=== PATIENT | female | born 1950 | race Caucasian/White ===

== ENCOUNTER → 2017-01-24 | Outpatient (CLI) | payer OTHER ==
[~2017-01-24] MED LIST: AMOXICILLIN500 M1 PO; AMPHETAMINE SAL10 MG PO; ATARAX PO; CEFUROXIME500 MG PO; CHLORTHALIDONE25 MG PO; CLARITIN10 MG PO; DESYREL50 MG; FISH OIL 1,0001 EAC5 PO; HORMONE REPLACEMENT; HYDROXYZINE HCL10 M1 PO; HYDROXYZINE HCL25 M1 PO; MACROBID 100 M100 M1 PO; MIRALAX17 GM PO; MOBIC15 MG PO; MOBIC7.5 MG PO; NORCO 5-325 TA1 EACH PO; NORFLEX100 MG PO; PERCOCET 5-3251 EACH PO; PHENERGAN 25 MG25 M1 PO; PREDNISONE 20 M20 MG PO; PROAIR HFA8.5 GM INH; PROMS25 WY RECTAL; PROVENTIL HFA6.7 G1 INH; SLEEPING PILL; TESSALON PERLE100 MG PO; TRAZODONE 150150 M1; TRAZODONE HCL100 MG PO; TUSSIONEX PENN473 ML PO; VENTOLIN HFA 1818 GM INH; WELLBUTRIN SR150 MG; WELLBUTRIN SR150 MG PO; WELLBUTRIN XL300 MG PO; XANAX 0.25 MG0.25 MG; XANAX 0.25 MG0.25 MG PO; XANAX 0.5 MG0.5 M1 PO; ZOFRAN ODT4 MG PO; ZOLOFT25 MG PO; ZOLOFT50 MG PO; ZYRTEC10 M2; [UNRECOGNIZED DRUG - REMARK]
== END ==
LOC: NUC 10:08
DX: M85.88 Other specified disorders of bone density and structure, other site (principal); Z78.0 Asymptomatic menopausal state

== ENCOUNTER 2018-01-17 12:18 | Emergency (ER) | payer OTHER ==
[~2018-01-17] VITALS: Ht 157.5 cm; Wt 53.5 kg
[2018-01-17 12:22] VITALS: BP 153/73
[2018-01-17] MEDS ORDERED: IBUPROFEN 600600 M1 PO (13:10)
== END 2018-01-17 15:56 | disposition home or self-care (01) ==
LOC: ER 12:18
DX: S92.531A Displaced fracture of distal phalanx of right lesser toe(s), initial encounter for closed fracture (principal); W01.0XXA Fall on same level from slipping, tripping and stumbling without subsequent striking against object, initial encounter; Y93.89 Activity, other specified; Y92.89 Other specified places as the place of occurrence of the external cause; Y99.8 Other external cause status; F41.9 Anxiety disorder, unspecified; I10 Essential (primary) hypertension; Z96.653 Presence of artificial knee joint, bilateral; Z90.49 Acquired absence of other specified parts of digestive tract; Z90.721 Acquired absence of ovaries, unilateral; Z87.891 Personal history of nicotine dependence; Z88.1 Allergy status to other antibiotic agents; Z91.041 Radiographic dye allergy status; Z88.8 Allergy status to other drugs, medicaments and biological substances; Z88.6 Allergy status to analgesic agent

== ENCOUNTER 2018-04-20 02:36 | Emergency (ER) | payer OTHER ==
[~2018-04-20] VITALS: Ht 157.5 cm; Wt 54.4 kg
--- NOTE | ~2018-04-20 | EKG ---
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
[~2018-04-20 02:36] MED LIST changes: +IBUPROFEN 600600 M1 PO
[2018-04-20 03:14] LABS: ABSOLUTE NEUTROPHILS 5.2 thou/uL (1.4-8.2); BASOPHILS 0.9 % (0.0-2.0); EOSINOPHILS 4.2 % (0.0-3.0); HEMATOCRIT 44.5 % (37.0-47.0); HEMOGLOBIN 15.5 gm/dL (12.0-15.0); LYMPHOCYTES 17.3 % (24.0-44.0); MCH 32.7 pg (26.0-34.0); MCHC 34.8 g/dL (28.0-37.0); PLATELET COUNT 309 thou/uL (150-400); POLYS 70.6 % (36.0-66.0); RBC 4.74 mil/uL (4.20-5.00); RDW 12.5 % (10.5-14.5); WBC 7.4 thou/uL (4.0-11.0)
[2018-04-20 03:23] LABS: ANION GAP 12 mmol/L (7-16); BUN 15 mg/dL (7-18); CALCIUM 9.4 mg/dL (8.5-10.1); CHLORIDE 103 mmol/L (98-107); CO2 24 mmol/L (21-32); CREATININE 0.9 mg/dL (0.6-1.0); GLUCOSE 130 mg/dL (74-106); POTASSIUM 3.9 mmol/L (3.5-5.1); SODIUM 139 mmol/L (136-145)
[2018-04-20 03:31] LABS: ALBUMIN 3.9 g/dL (3.4-5.0); DIRECT BILIRUBIN < 0.1 mg/dL (<0.1-0.3); LIPASE 145 U/L (73-393); SGOT 24 U/L (15-37); SGPT 22 U/L (30-65); TOTAL BILIRUBIN 0.5 mg/dL (<0.1-1.0); TOTAL PROTEIN 7.2 g/dL (6.4-8.2); TROPONIN-I <0.06 ng/mL (<0.06)
[2018-04-20 04:17] LABS: URINE BILIRUBIN NEGATIVE (Negative); URINE BLOOD TRACE (Negative); URINE CLARITY CLEAR; URINE COLOR YELLOW; URINE GLUCOSE-RANDOM* NEGATIVE (Negative); URINE KETONES NEGATIVE (Negative); URINE LEUKOCYTES-REFLEX 1+ (Negative); URINE NITRITE-REFLEX NEGATIVE (Negative); URINE PROTEIN (DIPSTICK) NEGATIVE (Negative); URINE SPECIFIC GRAVITY <= 1.005 (1.005-1.035); URINE UROBILINOGEN 0.2 E.U./dl (0.2-1.0)
[2018-04-20 04:25] LABS: AMP/METHAMP Negative (Negative); BARBITURATES Negative (Negative); BENZODIAZEPINES Negative (Negative); COCAINE Negative (Negative); METHADONE Negative (Negative); OPIATES Negative (Negative); PCP Negative (Negative)
[2018-04-20 04:28] LABS: BACTERIA-REFLEX 1-9 Few /HPF (None Seen); CASTS None Seen /LPF (None Seen); CRYSTALS None Seen /LPF (None Seen); MUCUS None Seen strn/LPF (None Seen); SQUAMOUS None Seen /LPF (0-3); URINE RBC 0-2 Rare /HPF (0-2); URINE WBC-REFLEX 0-5 Rare /HPF (0-5)
[2018-04-20 04:29] LABS: TRANSITIONAL EPITHEL CELL 0-3 Few /LPF (None Seen)
[2018-04-20 06:03] VITALS: BP 171/73
[2018-04-20] MEDS ORDERED: COMPAZINE10 MG PO (06:14)
== END 2018-04-20 06:32 | disposition home or self-care (01) ==
LOC: ER 02:36
PROVIDERS: Emergency Medicine
DX: R11.2 Nausea with vomiting, unspecified (principal); T44.1X5A Adverse effect of other parasympathomimetics [cholinergics], initial encounter; Y92.89 Other specified places as the place of occurrence of the external cause; I10 Essential (primary) hypertension; F41.9 Anxiety disorder, unspecified; Z96.653 Presence of artificial knee joint, bilateral; Z90.89 Acquired absence of other organs; Z90.49 Acquired absence of other specified parts of digestive tract; Z90.721 Acquired absence of ovaries, unilateral; Z88.1 Allergy status to other antibiotic agents; Z88.8 Allergy status to other drugs, medicaments and biological substances; Z88.6 Allergy status to analgesic agent; Z91.041 Radiographic dye allergy status; Z87.891 Personal history of nicotine dependence

== ENCOUNTER 2018-09-16 19:35 | Emergency (ER) | payer OTHER ==
[~2018-09-16] VITALS: Ht 157.5 cm; Wt 55.8 kg
[~2018-09-16 19:35] MED LIST changes: +COMPAZINE10 MG PO
[2018-09-16] MEDS ORDERED: EXELON1 EAC1 TRANSDERM (20:08)
[2018-09-16] MEDS ORDERED: NAMENDA 10 MG T10 MG PO (20:09)
[2018-09-16] MEDS ORDERED: AMLODIPINE BESY10 MG PO (20:10)
[2018-09-16] MEDS ORDERED: TOPROL XL25 MG PO (20:11)
[2018-09-16] MEDS ORDERED: LISINOPRIL40 MG PO (20:12)
[2018-09-16] MEDS ORDERED: ALL DAY ALLERGY10 M2 PO (20:12)
[2018-09-16] MEDS ORDERED: FLONASE 0.05%50 MCG NASAL (20:13)
[2018-09-16] MEDS ORDERED: BREO ELLIPTA 11 EACH INH (20:13)
[2018-09-16] MEDS ORDERED: AZELASTINE HCL6 ML (20:15)
[2018-09-16 20:18] LABS: BE(vivo) -3.1 mmol/L (-2 to +3); HCO3 15.8 mmol/L (22.0-26.0); PO2 142.3 mmHg (80.0-100.0); pH 7.585 (7.360-7.450); sO2 99.2 % (92.0-98.0)
[2018-09-16 20:24] LABS: HEMATOCRIT 41.9 % (37.0-47.0); HEMOGLOBIN 14.7 gm/dL (12.0-15.0); MCH 32.6 pg (26.0-34.0); MCHC 35.1 g/dL (28.0-37.0); MCV 92.8 fL (80.0-100.0); RBC 4.52 mil/uL (4.20-5.00); RDW 12.5 % (10.5-14.5); WBC 6.7 thou/uL (4.0-11.0)
[2018-09-16 20:27] LABS: ANION GAP 16 mmol/L (7-16); BUN 11 mg/dL (7-18); CALCIUM 9.4 mg/dL (8.5-10.1); CHLORIDE 103 mmol/L (98-107); CO2 19 mmol/L (21-32); CREATININE 0.8 mg/dL (0.6-1.0); GLUCOSE 108 mg/dL (74-106); SODIUM 138 mmol/L (136-145)
[2018-09-16 20:29] LABS: POTASSIUM 3.8 mmol/L (3.5-5.1)
[2018-09-16 20:39] LABS: ALBUMIN 3.8 g/dL (3.4-5.0); SGOT 33 U/L (15-37); SGPT 18 U/L (30-65); TOTAL BILIRUBIN 0.7 mg/dL (<0.1-1.0); TOTAL PROTEIN 7.1 g/dL (6.4-8.2); TROPONIN-I <0.06 ng/mL (<0.06)
[2018-09-16] MEDS ORDERED: VENTOLIN HFA 1818 GM INH (21:20)
[2018-09-16] MEDS ORDERED: PREDNISONE 20 M20 M1 PO (21:20)
[2018-09-16 21:34] VITALS: BP 150/79
--- NOTE | 2018-09-17 00:10 | EKG ---
[address] [address] ELECTROCARDIOGRAM REPORT Name: MEGHAN SANZ I Room #: DEP [facility]#: [id number] ������������������ Admission: 09/16/18 ������������������ Attend Phys: Discharge: 09/16/18 ������������������ Date of : 48 Report #: [id number] ����������������������������������������������������������������� [id number] THIS REPORT FOR: //name// [facility] ED Test Date: 2018-09-16 Test Time: 20:46:42 Pat Name: MEGHAN SANZ Department: Room: Gender: F Barista: keaton : 1950 Requested By: Janina Salmon Order Number: [id number] MD: Rd Haley Measurements Intervals [place] Rate: 93 P: 56 DE: 200 QRS: -30 QRSD: 90 T: 45 QT: 361 QTc: 449 Interpretive Statements Sinus rhythm Inferior infarct, old Baseline wander in lead(s) II,III,aVF Compared to ECG 04/20/2018 03:16:18 no significant changes Electronically Signed On 09-17-2018 0:10:[address]aley [email or web address] ��������������������������������������������� <ELECTRONICALLY SIGNED> ���������������������������������������� By: Rd Haley MD ��������������������������������������������� 09/17/[address] MD /EPI
== END 2018-09-16 21:35 | disposition home or self-care (01) ==
LOC: ER 19:35
PROVIDERS: Physician Assistant
DX: J45.901 Unspecified asthma with (acute) exacerbation (principal); R06.4 Hyperventilation; I10 Essential (primary) hypertension; Z96.653 Presence of artificial knee joint, bilateral; Z79.899 Other long term (current) drug therapy; Z87.891 Personal history of nicotine dependence; Z88.1 Allergy status to other antibiotic agents; Z88.8 Allergy status to other drugs, medicaments and biological substances

== ENCOUNTER 2018-11-16 09:45 | Inpatient (IN) | payer OTHER ==
[~2018-11-16] VITALS: Ht 157.5 cm; Wt 54.4 kg
[2018-11-16 09:45] VITALS: BP 167/96
[~2018-11-16 09:45] MED LIST changes: +ALL DAY ALLERGY10 M2 PO; +AMLODIPINE BESY10 MG PO; +AZELASTINE HCL6 ML; +BREO ELLIPTA 11 EACH INH; +EXELON1 EAC1 TRANSDERM; +FLONASE 0.05%50 MCG NASAL; +LISINOPRIL40 MG PO; +NAMENDA 10 MG T10 MG PO; +PREDNISONE 20 M20 M1 PO; +TOPROL XL25 MG PO
[2018-11-16 10:46] LABS: HEMOGLOBIN 15.4 gm/dL (12.0-15.0); MCH 32.4 pg (26.0-34.0); MCHC 35.1 g/dL (28.0-37.0); MCV 92.5 fL (80.0-100.0); RBC 4.76 mil/uL (4.20-5.00); RDW 12.8 % (10.5-14.5); WBC 5.9 thou/uL (4.0-11.0)
[2018-11-16] MEDS ORDERED: VITAMIN B-12500 MCG PO (11:13)
[2018-11-16] MEDS ORDERED: VITAMIN B-1100 M1 PO (11:16)
[2018-11-16] MEDS ORDERED: PREVAGEN PO (11:17)
[2018-11-16 11:19] LABS: ANION GAP 9 mmol/L (7-16); BUN 11 mg/dL (7-18); CALCIUM 8.9 mg/dL (8.5-10.1); CHLORIDE 105 mmol/L (98-107); CO2 25 mmol/L (21-32); CREATININE 0.8 mg/dL (0.6-1.0); GLUCOSE 111 mg/dL (74-106); POTASSIUM 3.6 mmol/L (3.5-5.1); SODIUM 139 mmol/L (136-145)
[2018-11-16 11:31] LABS: ALBUMIN 3.6 g/dL (3.4-5.0); LIPASE 97 U/L (73-393); SGOT 20 U/L (15-37); SGPT 16 U/L (30-65); TOTAL BILIRUBIN 1.1 mg/dL (<0.1-1.0); TOTAL PROTEIN 6.2 g/dL (6.4-8.2); TROPONIN-I <0.06 ng/mL (<0.06)
[2018-11-16 11:55] LABS: URINE BILIRUBIN NEGATIVE (Negative); URINE BLOOD NEGATIVE (Negative); URINE CLARITY CLEAR; URINE COLOR YELLOW; URINE GLUCOSE-RANDOM* NEGATIVE (Negative); URINE KETONES NEGATIVE (Negative); URINE LEUKOCYTES-REFLEX NEGATIVE (Negative); URINE NITRITE-REFLEX NEGATIVE (Negative); URINE PROTEIN (DIPSTICK) NEGATIVE (Negative); URINE UROBILINOGEN 0.2 E.U./dl (0.2-1.0)
--- NOTE | 2018-11-16 15:01 | EKG ---
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: : 1950 Requested By: Lurdes De La Rosa Order Number: [id number] MD: Mark Gamboa Measurements Intervals [place] Rate: 70 P: 46 HI: 201 QRS: -26 QRSD: 78 T: 45 QT: 404 QTc: 436 Interpretive Statements Sinus rhythm Borderline left axis deviation Compared to ECG 09/16/2018 20:46:42 Myocardial infarct finding no longer present Electronically Signed On 11-16-2018 15:00:53 CDT by Mark Gamboa [email or web address] ��������������������������������������������� <ELECTRONICALLY SIGNED> ���������������������������������������� By: Mark Gamboa MD ��������������������������������������������� 11/16/18 1500 1002 1002 Mark Gamboa MD /NORAH
[2018-11-16 15:13] VITALS: BP 165/84
[2018-11-16 16:17] VITALS: BP 173/98
[2018-11-16 17:15] VITALS: BP 173/106
--- NOTE | 2018-11-16 18:24 | NUR ---
ADM PT CAME IN FROM ER. PT ORIENTED TO ROOM. SEEN AND EXAMINED BY PROVIDER. WILL CONTINUE TO MONITOR.
[2018-11-16 19:10] VITALS: BP 140/88
[2018-11-17 04:45] VITALS: BP 151/84
--- NOTE | 2018-11-17 06:23 | NUR ---
PATIENT IS ALERT AND ORIENTED WITH INTERMITTENT FORGETFULLNESS. PAITNET IS UP AD BARB. PATINET IS NSR ON TELE. PATIENTS BLOOD PRESSURE HAS BEEN UNDER CONTORL. PAITENT IS CONTIENT. PATIENT IS STEADY ON FEET. AMBULATES OFTEN. PATIENT DENEIS PAIN. PATIENT IS RESTING COMFORTABLY IN BED. WCM.
--- NOTE | 2018-11-17 07:41 | H ---
[facility] [place] [address] HISTORY AND PHYSICAL Name: MEGHAN SANZ I Room #: 356-P ADM IN M.R.#: [id number] Admission: 11/16/18 ������������������ Attend Phys: Fabrizio Brown MD Discharge: ������������������ Date of : 48 Report #: [id number] THIS REPORT FOR: //name// CC: Fabrizio Brown DATE OF SERVICE: 11/16/2018 CHIEF COMPLAINT: Nausea, vomiting. HISTORY OF PRESENT ILLNESS: The patient is a 68-year-old female who came to the Emergency Room with a one-day history of nausea and vomiting. She states that last night, she got sick after eating some meat and vomited. She then stated she vomited around midnight or 4:00 a.m., but she could not remember the details. She thinks she had some "bad food." She remembers regurgitating some of the food particles. Since then, she has not had any recurrent symptoms. No fever or chills. No abdominal pain. She says she just feels thirsty. The other overriding issue here is her high blood pressure. In the Emergency Room, she had ranges of 180/90-100 systolic. It is unclear whether she has been compliant with her home medications. Has had some recent issues in the last six months of cognitive decline and short term memory lapse. She carries a diagnosis of mild cognitive impairment from [facility] going back to at least 2016. They had been seeing her once or twice a year, but I do not know when the last assessment was; however, her neighbor is with her today who says that they have noted significant short-term memory loss and decline in the last several months. The neighbor reports that recently, the patient called neighbors and was afraid that she had "given away all your shoes" when there was nothing truth to that story at all. They have noted she is disoriented at times and forgetful. She repeated herself several times in the interview this evening. PAST MEDICAL HISTORY: Hypertension, mild cognitive impairment, asthma. PAST SURGICAL HISTORY: Unknown. FAMILY HISTORY: Noncontributory. SOCIAL HISTORY: She lives alone. She has one son. No chronic tobacco use. She does have red wine occasionally. ALLERGIES: KEFLEX, CIPRO, CLARITHROMYCIN, DOXYCYCLINE, ELETRIPTAN, LEVAQUIN, METRONIDAZOLE, NITROFURANTOIN, ZOFRAN. MEDICATIONS: Bupropion, trazodone, sertraline, memantine, Norvasc, metoprolol, lisinopril, B12, thiamine. REVIEW OF SYSTEMS: She complains of headache. No chest pain, shortness of [address] [address] HISTORY AND PHYSICAL Name: MEGHAN SANZ Kana Room #: 356-P [facility] IN M.R.#: [id number] Admission: 11/16/18 ������������������ Attend Phys: Fabrizio Brown MD Discharge: ������������������ Date of : 48 Report #: [id number] breath, abdominal pain, nausea, vomiting, diarrhea, constipation, dysuria, syncope. PHYSICAL EXAMINATION: VITAL SIGNS: Temperature 36.6, pulse 118, respirations 25, blood pressure 165/84, O2 sat 97% on room air. GENERAL: She is awake, alert, in no distress. HEAD AND NECK: Unremarkable. LUNGS: Clear. HEART: Regular. ABDOMEN: Soft, normoactive bowel sounds. EXTREMITIES: No edema. NEUROLOGIC: Motor strength 4/5 throughout. PSYCHIATRIC: She remembered my name. She remembered being at the hospital. She had difficulty giving the timeframe of the details overnight. She repeated herself several times through the interview. She could not remember the names of her medications. Urinalysis, chemistry, CBC all unremarkable and chest x-ray was clear. ASSESSMENT: 1. Nausea and vomiting. 2. Hypertensive urgency. 3. 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 PLAN: I need her admitted to the hospital to ensure that this GI issue is self-limited. So far, it seems stable and may very well be related to just a basic gastroenteritis or food borne illness that is passing. Blood pressure control is an issue and again, it is unclear how compliant she has been with her medication, but I will resume her home regimen and adjust as needed. Imaging of the brain will be obtained. The other ongoing issue was that it appears now clinically and historically speaking with her sister in the office in the spring and now a neighbor that her cognition has declined at least in the last 6 months and maybe for the last year or longer. I feel this has progressed beyond mild cognitive impairment to an early dementia, most likely of Alzheimer's type. I will ask Psychiatry to see her to assess for competency and off for an additional opinion on her cognition. ��������������������������������������������� <ELECTRONICALLY SIGNED> ���������������������������������������� By: Fabrizio Brown MD ��������������������������������������������� 11/17/18 0741 1703 1737 Fabrizio Brown MD /nt
[2018-11-17] MEDS ORDERED: METOPROLOL SUCC50 MG PO (07:56)
[2018-11-17] MEDS ORDERED: ALL DAY ALLERGY10 M2 PO (07:57)
[2018-11-17] MEDS ORDERED: EXELON1 EAC1 TRANSDERM (07:58)
[2018-11-17] MEDS ORDERED: VENTOLIN HFA 1818 GM INH (07:59)
[2018-11-17] MEDS ORDERED: IBUPROFEN 600600 M1 PO (07:59)
[2018-11-17 08:00] VITALS: BP 151/99
[2018-11-17] MEDS ORDERED: FLONASE 0.05%50 MCG NASAL (08:00)
[2018-11-17] MEDS ORDERED: BREO ELLIPTA 11 EACH INH (08:00)
[2018-11-17 10:54] VITALS: BP 151/99
--- NOTE | 2018-11-17 11:19 | NUR ---
care of pt assumed this am @ ~0700. pt noted to be awake in bed this am anxiously awaiting her breakfast, stating "i'm starving, when does it come?". pt aox4, but noted to be forgetful and repetitive in the information she shared w/ the rn. pt is aware of her dementia as she told the rn she has dementia. pt was very anxious to get home today to care for her cat as she states there is no one at home to feed her cat. pt states she lives very closely to the hospital and would walk home (when discharged) if she was 20 years younger. pt can not remember whether she drove herself to the hospital, but has called a friend to give her a ride home today. iv access, tele dc'd late morning. discharge paperwork, script x1 w/ education gone through w/ pt. pt informed of dr. herrera order for her not to drive until she has seen him in his office next week. [facility].
--- NOTE | 2018-11-19 12:15 | D ---
[facility] [address] [place] [address] DISCHARGE SUMMARY Name: MEGHAN SANZ Kana Room #: 356-P [facility] IN M.R.#: [id number] Admission: 11/16/18 ������������������ Attend Phys: Fabrizio Brown MD Discharge: 11/17/18 ������������������ Date of : 48 Report #: [id number] THIS REPORT FOR: //name// CC: Fabrizio Brown FINAL DIAGNOSES: 1. Uncontrolled hypertension. 2. Cognitive impairment. 3. Nausea and vomiting. HISTORY OF PRESENT ILLNESS: The patient was admitted through the Emergency Room with nausea and vomiting. Her blood pressure was elevated and it was unclear whether she was compliant with medications at home. She does have a diagnosis of mild cognitive impairment from [facility] dating back to as far as 2016 or beyond. However, neighbors and family have noted increased forgetfulness and confusion episodes in the last 6 months. I increased her metoprolol and her blood pressure was improved. She had no acute neurologic findings. She was oriented to place and remembered my name. We discussed the progression of her cognitive deficit. She did not want to participate in any further workup or treatment in the hospital and she was stable overnight. At this point, she is in clear enough mind to make basic decisions. I informed her of working with her family and preparing a care plan going forward as far as her living arrangements, supervision of ADLs and transportation and no driving at this point until she is reevaluated at . DISPOSITION: She will be discharged to home to the care of her family with diet and activity as tolerated. She will resume all her medications with the exception of increasing metoprolol to 100 mg a day. She will follow up with me early next week and we will work on getting her back to [facility] for cognitive reassessment. ��������������������������������������������� <ELECTRONICALLY SIGNED> ���������������������������������������� By: Fabrizio Brown MD ��������������������������������������������� 11/19/18 1215 0824 0900 Fabrizio Brown MD /nt
== END 2018-11-17 11:39 | disposition home or self-care (01) | DRG 305 ==
LOC: ER 09:45 → EROBS 13:33 → 3W 16:33
PROVIDERS: Physician Assistant; Student in an Organized Health Care Education/Training Program; ADMIT Internal Medicine Geriatric Medicine
DX: I16.0 Hypertensive urgency (principal); F03.90 Unspecified dementia, unspecified severity, without behavioral disturbance, psychotic disturbance, mood disturbance, and anxiety; F41.9 Anxiety disorder, unspecified; Z96.653 Presence of artificial knee joint, bilateral; I10 Essential (primary) hypertension; J45.909 Unspecified asthma, uncomplicated; Z60.2 Problems related to living alone; Z79.84 Long term (current) use of oral hypoglycemic drugs; Z90.49 Acquired absence of other specified parts of digestive tract; Z90.721 Acquired absence of ovaries, unilateral; Z79.1 Long term (current) use of non-steroidal anti-inflammatories (NSAID); Z79.899 Other long term (current) drug therapy; Z88.1 Allergy status to other antibiotic agents; Z88.6 Allergy status to analgesic agent; Z88.8 Allergy status to other drugs, medicaments and biological substances; Z91.041 Radiographic dye allergy status
CPT/HCPCS: 10879

== ENCOUNTER 2019-05-09 08:06 | Emergency (ER) | payer OTHER ==
[~2019-05-09] VITALS: Ht 157.5 cm; Wt 52.2 kg
[~2019-05-09 08:06] MED LIST changes: +METOPROLOL SUCC50 MG PO; +PREVAGEN PO; +VITAMIN B-1100 M1 PO; +VITAMIN B-12500 MCG PO
[2019-05-09 08:07] VITALS: BP 164/96
[2019-05-09 08:51] LABS: ABSOLUTE NEUTROPHILS 9.5 thou/uL (1.4-8.2); BASOPHILS 0.9 % (0.0-2.0); EOSINOPHILS 1.2 % (0.0-3.0); HEMATOCRIT 47.7 % (37.0-47.0); HEMOGLOBIN 16.2 gm/dL (12.0-15.0); LYMPHOCYTES 8.4 % (24.0-44.0); MCH 31.8 pg (26.0-34.0); MCV 93.7 fL (80.0-100.0); MONOCYTES 6.4 % (1.0-8.0); PLATELET COUNT 382 thou/uL (150-400); POLYS 83.1 % (36.0-66.0); RBC 5.09 mil/uL (4.20-5.00); RDW 13.5 % (10.5-14.5); WBC 11.4 thou/uL (4.0-11.0)
[2019-05-09 08:55] LABS: ANION GAP 8 mmol/L (7-16); BUN 18 mg/dL (7-18); CALCIUM 9.5 mg/dL (8.5-10.1); CHLORIDE 102 mmol/L (98-107); CO2 26 mmol/L (21-32); CREATININE 1.1 mg/dL (0.6-1.0); GLUCOSE 106 mg/dL (74-106); POTASSIUM 4.4 mmol/L (3.5-5.1); SODIUM 136 mmol/L (136-145)
[2019-05-09 09:05] LABS: ALBUMIN 4.5 g/dL (3.4-5.0); LIPASE 166 U/L (73-393); SGOT 21 U/L (15-37); SGPT 22 U/L (30-65); TOTAL BILIRUBIN 0.7 mg/dL (<0.1-1.0); TROPONIN-I <0.06 ng/mL (<0.06)
[2019-05-09 09:34] LABS: URINE BILIRUBIN NEGATIVE (Negative); URINE BLOOD TRACE (Negative); URINE CLARITY CLEAR; URINE COLOR YELLOW; URINE GLUCOSE-RANDOM* NEGATIVE (Negative); URINE KETONES NEGATIVE (Negative); URINE LEUKOCYTES-REFLEX NEGATIVE (Negative); URINE NITRITE-REFLEX NEGATIVE (Negative); URINE PROTEIN (DIPSTICK) NEGATIVE (Negative); URINE UROBILINOGEN 0.2 E.U./dl (0.2-1.0)
--- NOTE | 2019-05-09 17:37 | EKG ---
[address] [address] [facility] [place] [address] ELECTROCARDIOGRAM REPORT Name: MEGHAN SANZ [id number] Admission: 05/09/19 Attend Phys: Discharge: 05/09/19 Date of : 48 Report #: [id number] THIS REPORT FOR: //name// [facility] ED Test Date: 2019-05-09 Test Time: 08:57:48 Pat Name: MEGHAN SANZ Department: Room: Gender: F Spacer Type Bar And Segment: ARPIT : 1950 Requested By: Rick Mao Order Number: [id number] MD: Rey Romero Measurements Intervals [place] Rate: 98 P: 68 CT: 169 QRS: -47 QRSD: 81 T: 48 QT: 342 QTc: 437 Interpretive Statements Sinus rhythm Poor R wave progression Inferior infarct, old No previous ECGs available for comparison Electronically Signed On 05-09-2019 17:37:24 EQUAL OPPORTUNITY DIRECTOR by Rey Romero [email or web address] <ELECTRONICALLY SIGNED> By: Rey Romero MD, [facility] 05/09/19 1737 0857 0857 Rey Romero MD, FACC /EPI
== END 2019-05-09 09:50 | disposition home or self-care (01) ==
LOC: ER 08:06
PROVIDERS: Emergency Medicine
DX: R10.13 Epigastric pain (principal); R11.2 Nausea with vomiting, unspecified; I10 Essential (primary) hypertension; J45.909 Unspecified asthma, uncomplicated; Z87.891 Personal history of nicotine dependence; Z88.1 Allergy status to other antibiotic agents; Z88.3 Allergy status to other anti-infective agents; Z79.899 Other long term (current) drug therapy; Z91.041 Radiographic dye allergy status; Z90.49 Acquired absence of other specified parts of digestive tract

== ENCOUNTER 2019-05-09 10:16 | Emergency (ER) | payer OTHER ==
[~2019-05-09] VITALS: Ht 157.5 cm; Wt 53.1 kg
[2019-05-09 10:52] LABS: AMP/METHAMP Negative (Negative); BARBITURATES Negative (Negative); BENZODIAZEPINES Negative (Negative); COCAINE Negative (Negative); METHADONE Negative (Negative); OPIATES Negative (Negative); PCP Negative (Negative)
[2019-05-09 12:46] VITALS: BP 161/91
--- NOTE | 2019-05-09 17:38 | EKG ---
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: ARPIT : 1950 Requested By: Rick Mao Order Number: [id number] MD: Rey Romero Measurements Intervals [place] Rate: 90 P: 48 RI: 151 QRS: -53 QRSD: 84 T: 63 QT: 358 QTc: 438 Interpretive Statements Sinus rhythm RSR' in V1 or V2, right VCD Probable inferior infarct, old Compared to ECG 11/16/2018 10:02:10 no significant change was found Electronically Signed On 05-09-2019 17:38:17 HEAD BOYS TENNIS COACH by Rey Romero [email or web address] <ELECTRONICALLY SIGNED> By: Rey Romero MD, [facility] 05/09/19 1738 1018 1018 Rey Romero MD, [facility] /EPI
== END 2019-05-09 12:47 | disposition home or self-care (01) ==
LOC: ER 10:16
PROVIDERS: Emergency Medicine
DX: R55 Syncope and collapse (principal); I10 Essential (primary) hypertension; J45.909 Unspecified asthma, uncomplicated; Z87.891 Personal history of nicotine dependence; Z88.1 Allergy status to other antibiotic agents; Z88.3 Allergy status to other anti-infective agents; Z91.041 Radiographic dye allergy status; Z88.8 Allergy status to other drugs, medicaments and biological substances; Z79.899 Other long term (current) drug therapy; W18.30XA Fall on same level, unspecified, initial encounter; Y93.89 Activity, other specified; Y92.481 Parking lot as the place of occurrence of the external cause; Y99.9 Unspecified external cause status

== ENCOUNTER 2019-12-10 23:26 | Inpatient (IN) | payer OTHER ==
[~2019-12-10] VITALS: Ht 157.5 cm; Wt 52.7 kg
[2019-12-10 23:27] VITALS: BP 148/79
--- NOTE | 2019-12-10 23:51 | NUR ---
1:1 with pt, she states that she is tired of life, and that she told her sister she wanted to kill her self. pt states that she is "too chicken to kill herself". pt is very emotional and is crying.
--- NOTE | 2019-12-11 00:35 | NUR ---
PT DPFERNANDO KAN, I TALKED WITH HER TO GIVE HER UPDATE ON THE PT. ISHMAEL STATED SHE DOES NOT KNOW HER MED LIST, OR HER CODED ALLERGIES.
[2019-12-11 00:44] LABS: URINE BILIRUBIN NEGATIVE (Negative); URINE BLOOD NEGATIVE (Negative); URINE CLARITY CLEAR; URINE COLOR YELLOW; URINE GLUCOSE-RANDOM* NEGATIVE (Negative); URINE KETONES NEGATIVE (Negative); URINE LEUKOCYTES-REFLEX NEGATIVE (Negative); URINE NITRITE-REFLEX NEGATIVE (Negative); URINE PROTEIN (DIPSTICK) NEGATIVE (Negative); URINE SPECIFIC GRAVITY <= 1.005 (1.005-1.035); URINE UROBILINOGEN 0.2 E.U./dl (0.2-1.0)
[2019-12-11 00:50] LABS: ABSOLUTE NEUTROPHILS 2.5 thou/uL (1.4-8.2); EOSINOPHILS 5.6 % (0.0-3.0); HEMATOCRIT 43.4 % (37.0-47.0); HEMOGLOBIN 15.1 gm/dL (12.0-15.0); LYMPHOCYTES 36.9 % (24.0-44.0); MCHC 34.8 g/dL (28.0-37.0); MCV 91.8 fL (80.0-100.0); MONOCYTES 10.9 % (1.0-8.0); PLATELET COUNT 268 thou/uL (150-400); POLYS 45.6 % (36.0-66.0); RBC 4.73 mil/uL (4.20-5.00); RDW 13.1 % (10.5-14.5); WBC 5.6 thou/uL (4.0-11.0)
[2019-12-11 00:54] LABS: ANION GAP 16 mmol/L (7-16); BUN 12 mg/dL (7-18); CALCIUM 8.3 mg/dL (8.5-10.1); CHLORIDE 98 mmol/L (98-107); CO2 18 mmol/L (21-32); CREATININE 0.7 mg/dL (0.6-1.0); GLUCOSE 102 mg/dL (74-106); POTASSIUM 3.4 mmol/L (3.5-5.1); SODIUM 132 mmol/L (136-145)
[2019-12-11 00:59] LABS: AMP/METHAMP Negative (Negative); BARBITURATES Negative (Negative); BENZODIAZEPINES Negative (Negative); COCAINE Negative (Negative); METHADONE Negative (Negative); OPIATES Negative (Negative); PCP Negative (Negative)
[2019-12-11 01:04] LABS: ALBUMIN 3.6 g/dL (3.4-5.0); SALICYLATE < 2.8 mg/dL (2.8-20.0); SGOT 18 U/L (15-37); SGPT 15 U/L (30-65); TOTAL BILIRUBIN 0.5 mg/dL (0.2-1.0); TOTAL PROTEIN 6.9 g/dL (6.4-8.2)
--- NOTE | 2019-12-11 06:22 | NUR ---
UPDATED DPOA PIETRO KAN ON PT ACCEPTANCE INTO [facility]IOR [facility]ALTH FACILITY HERE AT [facility].
[2019-12-11 08:01] VITALS: BP 158/82
[2019-12-11 11:25] VITALS: BP 184/91
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
--- NOTE | 2019-12-11 14:30 | EKG ---
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: : 1950 Requested By: Jassi Webb Order Number: [id number] MD: Santy Lang Measurements Intervals [place] Rate: 69 P: 66 DE: 216 QRS: -48 QRSD: 96 T: 52 QT: 429 QTc: 460 Interpretive Statements Sinus rhythm Borderline prolonged DE interval Probable left atrial enlargement RSR' in V1 or V2, probably normal variant Inferior infarct, old Minimal ST elevation, anterolateral leads Baseline wander in lead(s) V3 Compared to ECG 05/09/2019 10:18:45 ST (T wave) deviation now present Myocardial infarct finding still present Electronically Signed On 12-11-2019 14:29:59 CDT by Santy Lang [email or web address] <ELECTRONICALLY SIGNED> By: Santy Lang MD 12/11/19 1429 0002 0002 Santy Lang MD /EPI
[2019-12-11 17:13] VITALS: BP 158/91
[2019-12-11 22:00] VITALS: BP 158/91
--- NOTE | 2019-12-12 00:46 | NUR ---
Assumed care of patient this pm shift. Patient sitting on the couch in the mileu with peers at start of the shift. Patient is calm and cooperative and states that she just got depressed with all of the social isolation and that she does not want to harm herself or others. Patient is alert and oriented x4. Patient is not a falls risk. Patient ambulates with a steady even gait. Patient takes medications whole with fluids. Patient hopes to discharge soon. Patients assessment shows no signs of acute distress. We will continue to monitor per hospital protocol.
[2019-12-12 07:53] VITALS: BP 165/84
--- NOTE | 2019-12-12 09:25 | NUR ---
ONDINA received notice from the community engagement leader that Laura (DPOA) at [phone] requested her to send records to pt's neurologist and PCP. ONDINA contacted Laura. No answer. [place] [facility] SW team will continue to follow pt during her stay on this unit.
[2019-12-12 11:50] VITALS: BP 161/88
--- NOTE | 2019-12-12 13:54 | NUR ---
Alert to person and place only. States she wants to go home and was told she would be discharged today. Up ambulating in unit without s/o distress with regular, steady gait. Denies SI/HI. States she has not had a BM in one week but later stated she had large, explosive BM this AM. Also reports abdominal pain in epigastric area "I know it's there" which she states is from constipation. Breath sounds clear t/o. Reg HR auscultated. Color pink with brisk capillary refill and palpable peripheral pulses. No edema noted. Independent with voiding. Active bowel sounds over soft, flat abdomen.
--- NOTE | 2019-12-12 14:14 | NUR ---
ONDINA contacted Luanne with [facility] and gave her an update on pt. She asked that d/c docs be faxed to [phone] when pt discharges. ONDINA team will continue to follow pt during her stay on this unit.
[2019-12-12 19:25] VITALS: BP 145/85
[2019-12-12 22:00] VITALS: BP 145/85
--- NOTE | 2019-12-12 23:18 | H ---
[facility] [place] [address] HISTORY AND PHYSICAL Name: MEGHAN SANZ I Room #: 524B-B ADM IN M.R.#: [id number] Admission: 12/11/19 Attend Phys: Tho Lawton DO Discharge: Date of : 48 Report #: [id number] THIS REPORT FOR: cc: NO FAMILY PHYSICIAN or PCP NO FAMILY PHYSICIAN or PCP Tho Lawton DO ~ CC: Tho Lawton NO PCP DATE OF SERVICE: 12/11/2019 INPATIENT PSYCHIATRIC EVALUATION ATTENDING PSYCHIATRIST: Tho Lawton DO. MANAGER OF REGULATORY AFFAIRS: Antonette Castellanos MD REASON FOR ADMISSION: Presented to the Emergency Room via EMS and police due to concern of a suicide attempt. CHIEF COMPLAINT: "I'm here because I have been depressed." HISTORY OF PRESENT ILLNESS: This is a 69-year-old female, , brought to the ER last night by first responders after sister made 911 call. She reports the patient was stating she wanted to kill herself. On arrival to the ER, the patient denied these thoughts, but was intoxicated, reported she wanted to go home. She did admit to using alcohol and taking sleeping pills, but was unsure of how much. BAL was 191 in the ER, which is twice the legal limit in the state of [place]. Today, the patient was seen on the Geriatric Psychiatry Unit, is tearful. She was seen sitting on her bed with nurse practitioner, student present who assisted me in the interview. The patient reported she has symptoms of depression and have worsened over the last week. She denies that she has had any depressive symptoms prior to 1 week ago. She reports last night that her depression reached a peak, but denies saying she wanted to end her life and denies drinking more than 1 glass of wine, which I find hard to believe. The patient does note that she has a diagnosis of dementia. She states this was given in 2017 and has difficulty remembering events. The patient reports that her depression over the last week has stemmed from loneliness, brought on by the pandemic. The patient reports that she is normally very social person and has been able to see her friends lately. She does have a sister in the area, lives in the [place]. She reports her depression consists of hopelessness, apathy, increased sleep and lack of motivation. She reports that she does have a therapist, but has not had any appointment for several months. She denies that she has had any depression in the past. She denies any previous suicidal ideation or attempts on her life. The patient denies history of previous psychiatric hospitalizations. [facility] [address] [place] [address] HISTORY AND PHYSICAL Name: MEGHAN SANZ Kana Room #: 524B-B ADM IN M.R.#: [id number] Admission: 12/11/19 Attend Phys: Tho Lawton DO Discharge: Date of : 48 Report #: [id number] PSYCHIATRIC REVIEW OF SYSTEMS: Denies hallucination, paranoid delusions, panic symptoms, symptoms of anxiety, obsessions, compulsions, zaid, phobias or past violent behavior. Collateral from the patient's DPOA, who is her older sister. The DPOA reports that the patient called her last night and reported that the patient was trying to forget how terrible everything is and that she wants to kill herself. The sister reported that this is the first time she has heard the patient make suicidal statements, sister noted that the patient's alcohol intake has significantly increased since 08/2019. She also reports that the patient's hygiene has been declined over the last few months as well. Sister reports that the patient has increased paranoia over the last 6 months and is frequently concerned that someone is out to get her and to take her money. She notes that since the patient was diagnosed with major neurocognitive disorder 3 years ago, she has had a "slow decline in memory." HOME MEDICATIONS: Thiamine hydrochloride 130 mg p.o. daily, I think that one may have been started in the ER, rivastigmine 9.5 mg p.o. daily, I actually thought she was on the patch, so that likely is 9.5 rivastigmine patch, metoprolol 50 mg p.o. daily, lisinopril 40 mg p.o. daily, Flonase propionate 50 mcg nasal spray 1 squirt each nostril daily, cyanocobalamin 2000 mcg p.o. daily, amlodipine 10 mg p.o. daily, sertraline 50 mg p.o. daily, memantine 10 mg p.o. b.i.d., bupropion hydrochloride 100 mg p.o. at bedtime, ondansetron p.r.n. Actually the rest are just hospital PRNs not actual home meds. PSYCHIATRIC HISTORY: Diagnosis of major neurocognitive disorder 3 years ago, steady decline in memory, neurologist is Dr. Munoz, next appointment is 01/2020. MEDICAL HISTORY: Hypertension. PAST SURGICAL HISTORY: Knee replacement x 2 year unknown, shoulder surgery in 08/2019. ALLERGIES: CONTRAST DYE, CEPHALEXIN, DOXYCYCLINE, NITROFURANTOIN, CIPROFLOXACIN, METRONIDAZOLE, CLARITHROMYCIN, ONDANSETRON AND ACTUALLY THAT IS ORDERED, LEVOFLOXACIN AND ELETRIPTAN. Discontinuing ondansetron from her medication list since apparently was ordered as a medication. DEVELOPMENTAL HISTORY: Born in [place], [place], moved to [place] as a child when her parents were . The patient has one older sister who is her DPOA. The patient reports obtaining a bachelor's degree from [employer]. 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 Hobbies; she enjoys taking care of her house and yard, spend time with friends and volunteering. MARITAL HISTORY: for 20 years. 9 years ago. She has a 27-year-old son and she reports taking care of him, helped her cope with the of her . Sister reports that the son does not play an active role in the patient's life and she is concerned that he may be stealing money from her. This is unsubstantiated allegation I should add. At this time, the older sister manages the patient's money, bills and trust fund. CURRENT LIVING SITUATION: The patient lives at home alone with her cat and dog. SUBSTANCE USE HISTORY: Drinks 1 glass of wine daily. Quit smoking 20 years ago, but smoked 1 pack per day for 20 years for 20 pack years. Denies history of illicit drug use or prescription abuse. FAMILY HISTORY OF MENTAL ILLNESS: Grandfather was bipolar and committed suicide a number of years ago. Sister is bipolar. LABORATORY DATA: From [place] includes CBC: White count 5.6, H and H 15.1 and 43.4, platelet count 268, monocyte percentage high at 10.9, eosinophil percentage high at 5.6. Chemistries: Sodium 132, potassium 3.4, chloride 98, bicarbonate 18, anion gap 16, BUN 12, creatinine 0.7, estimated GFR 83, glucose 102, calcium 8.3, total bilirubin 0.5, AST 18, ALT 15, alkaline phosphatase 68, total protein 6.9, albumin 3.6. TSH 2.821. Free T4 0.9. Urinalysis is negative. Toxicology, alcohol was 191, repeated today was less than 10. UDS was otherwise negative. PHYSICAL EXAMINATION: VITAL SIGNS: Today, temperature 36.4, pulse 59, respirations 24, BP 158/91, O2 sat 99%. GENERAL: Normal gait and station, dressed in hospital gown. MENTAL STATUS EXAMINATION: This is a well-developed, thin female weighing 53.07 kilos, BMI 21.4. Alert and oriented x 3, sitting on her bed. Attention is intact. Concentration fair. Thought process is linear and goal directed. Thought content focused on present questions. Denied suicidal or homicidal ideation, auditory, visual, or tactile hallucinations. Mood and affect euthymic, congruent. Insight and judgment impaired. Thought content, she was focused on being discharged, asking why she had to stay an extra 3 days. Fund of knowledge is average. Speech is normal in rate and rhythm. SLUMS exam performed, scored a total of 16/30. Deficits noted on working memory, delayed memory and acute memory. FORMULATION: A 69-year-old female admitted to [facility] [address] [place] [address] HISTORY AND PHYSICAL Name: MEGHAN SANZ I Room #: 524B-B ADM IN M.R.#: [id number] Admission: 12/11/19 Attend Phys: Tho Lawton DO Discharge: Date of : 48 Report #: [id number] ER for suicidal ideation, concern for dementia, is a voluntary patient. DIAGNOSES: At this time, alcohol intoxication, substance use disorder for alcohol, at least mild, Major neurocognitive disorder due to Alzheimer's disease, unspecified depression. PLAN: Evaluate, stabilize, obtain collateral. We will go ahead and put the patient on the CIPR protocol as a precaution. We will order an OT evaluation, GISSELLE examination. At this time, we will continue her basic home medications so we get a better hand on her case. ESTIMATED LENGTH OF STAY: 10-14 days. STRENGTHS: She is insured, family support. WEAKNESSES: Advancing age, medical comorbidities. Time spent on interview, review of records, coordination of care is 60 minutes, greater than 50% of this time spent on review of records, coordination of care. <ELECTRONICALLY SIGNED> By: Tho Lawton DO 12/12/19 2318 08 51 Tho Lawton, /nt
--- NOTE | 2019-12-13 00:49 | NUR ---
Assumed care of patient this pm shift. Patient in good spirits. Patient is calm and cooperative. Patient denies pain. Patient denies hi/si. Patient is alert and oriented x4. Patients affect is euthmyic. Patient takes medications whole with thin fluids and is medication adherent. Patient ambulates without assistance and is not considered a falls risk. Patient stated that she had a bout of diarrhea this evening. Patients stool softners will be held. Patients assessment shows no signs of acute distress. Patient states that she would like to be at home where she could enjoy a glass of wine. We will continue to monitor per hospital protocol.
[2019-12-13 06:38] VITALS: BP 136/78
[2019-12-13 08:00] VITALS: BP 136/78
--- NOTE | 2019-12-13 08:45 | NUR ---
ONDINA spoke with Laura and provided her an update. ONDINA team will continue to follow pt during her stay.
[2019-12-13 09:59] VITALS: BP 136/78
--- NOTE | 2019-12-13 12:35 | NUR ---
PATIENT HAS BEEN UP, AND OUT ON THE UNIT, ALERT AND ORIENTED X 3-4, WITH PERIOD OF FORGETFULNESS, CONFUSION, AND DELUSION. PATIENT THINKS SHE IS ON VACATION, AND GOING ON A RETREAT. DOES NOT UNDERSTAND WHY SHE IS HERE IN "RESIDENTIAL". PATIENT REDIRECTED THAT SHE IS IN A HOSPITAL, AND NOT RESIDENTIAL. PATIENT DENIES SUICIDAL/HOMICIDAL IDEATION, SHE RATED BOTH DEPRESSION/ANXIETY 10/10. "IT IS DEPRESSING IN HERE, WHEN WILL I GET OUT" PATIENT TOOK ALL HER MEDICATION WHOLE WITHOUT DIFFICULTY. SHE IS EATING MEALS, AND DRINKING FLUID WELL. PATIENT DENIES HAVING PHYSICAL PAIN, NO C/O LOOSE STOOL VOICED AT THIS TIME. PATIENT AMBULATES WITH SLOW STEADY GAIT. NO SIGN OF ACUTE DISTRESS NOTED AT THIS TIME, WILL MONITOR FOR SAFETY.
--- NOTE | 2019-12-13 13:39 | NUR ---
Assess due to high nutrition screening risk. Pt admit to [facility] for depression, SI. Hx dementia. Attempt to visit this afternoon however pt sleeping with lights dimmed so did not awaken. Chart reviewed, eating 50-100% of meals. Wt 117 lb and wt from 05/2019 shows stable. On vitamin, thiamine, B12 supplementation for etoh use at home. No new nutrition interventions at this time but can follow up as needed to identify any food preferences pt may have. Low nutrition risk
[2019-12-13 19:36] VITALS: BP 157/81
--- NOTE | 2019-12-13 22:35 | NUR ---
Care assumed of patient at 1915: Patient in room at start of shift. Patient laying quietly in bed. Calm, pleasant and cooperative. Alert and oriented x4. Denies anxiety and depression. Denies SI/HI/AH/VH. Reports that she is sad that she is not at her home with her dog and cat. States that she spoke with the doctor today and she will be going home "soon". Reported that she had become depressed while at home due to social isolation and made suicidal statements. Good insight to current hospitalization. Patient declined HS snack. Took HS medication whole without difficulty. Reports having loose stools "since last night" and scheduled stool softener held. Patient fixated on wanting to return home. Patient presents with calm affect, occasional smile observed. Patient did isolate self to her room this evening. Patient was able to fall asleep at a reasonable hour and is resting quietly at this time.
[2019-12-14 07:35] VITALS: BP 123/79
--- NOTE | 2019-12-14 07:55 | NUR ---
PATIENT HAD STOMACH UPSET THIS MORNING, EMESIS X 1. MYLANTA 15ML GIVEN, WELL TOLERATED. NURSE PRACTITIONER (BISHOP) NOTIFIED. NO NEW ORDER AT THIS TIME.
[2019-12-14 10:14] VITALS: BP 123/79
--- NOTE | 2019-12-14 11:51 | NUR ---
ODNINA received a message from [facility] [phone] office; [phone] fax asking to speak to ONDINA. ONDINA returned her call and left a voice message.
--- NOTE | 2019-12-14 17:00 | NUR ---
ONDINA spoke to Jewels with [facility] who requested clinicals be faxed to them for admission consideration. SW faxed referral this date.
--- NOTE | 2019-12-14 17:36 | NUR ---
SW faxed referral to [facility].
--- NOTE | 2019-12-14 22:00 | NUR ---
Care assumed of patient at 1915: Patient laying awake in her bed at start of shift. Patient calm, pleasant and cooperative. Alert and oriented x3, disoriented on time. Patient appears to be more confused and forgetful this evening. Day shift reported that patient had an episode of emesis and several bowel movements throughout the day. Patient denies having had any of these episodes this shift. Patient reports that her stomach is "upset" and "sore". Offered jello for HS snack prior to taking HS medication. Patient declined HS snack. Patient did take HS medication without difficulty. Patient observed to be vomitting approximately 10 minutes later. Emesis appears to be only water. Pills not observed in the toilet. Patient stated the "new medicine" is upsetting her stomach. Patient denies anxiety and depression. Denies SI/HI/AH/VH. Reports that she is "just ready to get home". Patient declined Maalox and Zofran to assist with her stomach discomfort. After having episode of emesis, patient was able to lay in bed and fall asleep without difficulty. Patient resting quietly at this time.
[2019-12-15 06:12] LABS: BASOPHILS 0.6 % (0.0-2.0); EOSINOPHILS 1.7 % (0.0-3.0); HEMATOCRIT 45.3 % (37.0-47.0); HEMOGLOBIN 16.1 gm/dL (12.0-15.0); LYMPHOCYTES 17.4 % (24.0-44.0); MCH 32.2 pg (26.0-34.0); MCHC 35.5 g/dL (28.0-37.0); MCV 90.7 fL (80.0-100.0); MONOCYTES 11.8 % (1.0-8.0); PLATELET COUNT 318 thou/uL (150-400); POLYS 68.5 % (36.0-66.0); RBC 4.99 mil/uL (4.20-5.00); RDW 12.6 % (10.5-14.5); WBC 5.8 thou/uL (4.0-11.0)
[2019-12-15 06:19] LABS: ALBUMIN 3.9 g/dL (3.4-5.0); CALCIUM 8.6 mg/dL (8.5-10.1); CREATININE 0.9 mg/dL (0.6-1.0); PHOSPHORUS 3.4 mg/dL (2.5-4.9); POTASSIUM 3.9 mmol/L (3.5-5.1); TOTAL BILIRUBIN 1.5 mg/dL (0.2-1.0); TOTAL PROTEIN 6.8 g/dL (6.4-8.2)
[2019-12-15 09:05] VITALS: BP 136/84
[2019-12-15 11:38] VITALS: BP 136/84
--- NOTE | 2019-12-15 14:09 | NUR ---
1410 RESUMMED CARE FROM OVERNIGHT SHIFT THIS AM, PATIENT IN DAY ROOM TALKING WITH OTHER PATIENTS. PATIENT ATE BREAKFAST TOOK MEDICATION WITHOUT INCIDENCE. PATIENTS ABDOMEN SOFT ROUND BOWEL SOUNDS PRESENT LUNGS CLEAR PATIENT DENIES SI/HI/AH/VH AT PRESENT. PATIENT IS COOPERATIVE WANTS TO KNOW WHEN SHE IS LEAVING. PATIENT INTERACTS WELL WITH STAFF AND ROSALIO PATIENTS WILL CONTINUE TO MONITOR PATIENT FOR SAFETY AND BEHAVIORS.
[2019-12-15 23:03] VITALS: BP 170/102
--- NOTE | 2019-12-16 00:08 | NUR ---
Assumed care @ 19:15, In the day room seated on a couch in front of the television. Cooperative with assessment and compliant with medication administration. A&O x 2 to person and president. Confused as to why she is in [facility] in the hospital, reporting that she is here because her stomach hurts, mistakenly reports that today is Monday, even after discussing multiple times that today is Monday. Focusing on, I want to call my family law attorney, I want to call my hogshead stock clerk. Reminded that those offices are not open on a Monday or at night, she then says, of course I know that, and then asks again in a few minutes. Asleep @ 22:30, then awakens @ 23:10 c/o of sleeplessness. VS taken, B/P 186/100, order obtained from Rachel Harley N.P. for Clonidine 0.1 x 1 and this was given @ 23:11. Patient provided education regarding deep breathing to relax and focus the mind to overcome worry. Returned to bed ten minutes after taking the clonidine at staff suggestion. Will continue to monitor for patient's safety and behaviors.
[2019-12-16 03:24] VITALS: BP 132/63
--- NOTE | 2019-12-16 06:47 | NUR ---
slept 6.6 hours overnight
[2019-12-16 07:50] VITALS: BP 109/73
[2019-12-16 12:51] LABS: CALCIUM 9.3 mg/dL (8.5-10.1); CREATININE 0.8 mg/dL (0.6-1.0); POTASSIUM 4.2 mmol/L (3.5-5.1)
[2019-12-16] MEDS ORDERED: EXELON1 EAC1 TRANSDERM (13:45)
[2019-12-16] MEDS ORDERED: METOPROLOL SUCC50 MG PO (13:45)
[2019-12-16] MEDS ORDERED: PROTONIX40 M1 PO (13:46)
[2019-12-16 18:41] VITALS: BP 109/69
--- NOTE | 2019-12-16 19:08 | NUR ---
PT WAS IN DAY ROOM WITH PEERS . PT WAS TO HAVE URINE TEST , NA RESULTS WERE 118 DR Camila HARRISON.PT WAS PUT ON SEZIURE PRECATIONS , AND TO BE BE TRANSFERED TO [facility]Y RM 202 . PT PLESANT AND COOPERATIVE BUT VERY FORGETFULL. ASSESSMENT WAS DONE LUNGS CLEAR, HEART REGULAR, PEDADL PULSE EQUAL, BOWEL SOUNDS ACTIVE. C/O STOMACH PAIN AND NAUSEA. MEDICATION FOR NAUSEA GIVEN , LITTLE RESULTS. PT TRANSFERED TO CCU@ABOUT 11:45 VIA WHEEL CHAIR.
--- NOTE | 2019-12-17 10:00 | NUR ---
ONDINA spoke to pt's DPOA Laura on 12/16/19 re: discharge planning. Laura had been previously asked by ONDINA Meza to identify possible placement facilities for pt. She had provided the name of 2 facilities. ONDINA inquired about other facilities to contact. Laura provided [facility], [facility], [place], [place] and [facility]. She later called back and stated [facility] has openings and would like clinicals faxed to them. ONDINA faxed clinicals on Monday and will follow up. Laura called later and asked for the discharge summary to be faxed to Dr. Aidan Dugan [phone] offc; [phone] fax Laura expressed her desire for pt to return home with 24hr care which they are willing to pay for this. ONDINA explained doctor's recommendation. Laura reluctantly agreed to this plan.
--- NOTE | 2019-12-17 10:18 | NUR ---
ONDINA spoke to Lorena with [facility] [phone] and provided an update on pt. Lorena requested additional clinicals since original clinicals were sent on Monday. ONDINA faxed updates.
--- NOTE | 2019-12-17 10:35 | NUR ---
SW received multiple messages from pt's sister (DPFERNANDO) Laura inquiring about getting doctor's orders and medical records faxed to [facility]. SW returned her call and informed her that SW has been in touch with Lorena at [facility] and provided the necesary clinical information at this time.
--- NOTE | 2019-12-17 16:45 | NUR ---
SW received a call from Mary Ann with [facility] [phone] stating they are happy to accept patient once she is medically stable.
== END 2019-12-16 14:49 | DRG 57 ==
LOC: ER 23:26 → EROBS 12-11 03:10 → SBH 12-11 03:10 → EROBS 12-11 03:10 → SBH 12-11 09:05
PROVIDERS: Emergency Medicine; Internal Medicine; ADMIT Psychiatry & Neurology Psychiatry; ATTEND Psychiatry & Neurology Psychiatry
DX: G30.9 Alzheimer's disease, unspecified (principal); F02.81 Dementia in other diseases classified elsewhere, unspecified severity, with behavioral disturbance; R45.851 Suicidal ideations; E87.1 Hypo-osmolality and hyponatremia; F01.50 Vascular dementia, unspecified severity, without behavioral disturbance, psychotic disturbance, mood disturbance, and anxiety; F10.129 Alcohol abuse with intoxication, unspecified; F41.9 Anxiety disorder, unspecified; Z96.653 Presence of artificial knee joint, bilateral; I10 Essential (primary) hypertension; J45.909 Unspecified asthma, uncomplicated; Z79.899 Other long term (current) drug therapy; Z90.89 Acquired absence of other organs; Z88.8 Allergy status to other drugs, medicaments and biological substances; Z88.1 Allergy status to other antibiotic agents; Z91.041 Radiographic dye allergy status; Z87.891 Personal history of nicotine dependence
CPT/HCPCS: 10880

== ENCOUNTER 2019-12-16 16:12 | Inpatient (IN) | payer OTHER ==
[~2019-12-16] VITALS: Ht 157.5 cm; Wt 47.2 kg
[2019-12-16 15:30] VITALS: BP 168/82
[~2019-12-16 16:12] MED LIST changes: +PROTONIX40 M1 PO
[2019-12-16 18:00] VITALS: BP 168/82
--- NOTE | 2019-12-16 19:16 | NUR ---
PT CARE ASSUMED APPROXIMATELY 1500. ASSESSMENT CHARTED. MEDICATION CHARTED. PT HAS DEMENTIA; WAS BROUGHT IN BY HER SISTER WHO IS DPOA. PT BLAMES SISTER FOR BRINGING HER IN AFTER THOUGHTS OF SUICIDAL IDEATION.
[2019-12-16 20:05] VITALS: BP 183/101
[2019-12-16 22:35] LABS: URINE BILIRUBIN NEGATIVE (Negative); URINE BLOOD TRACE (Negative); URINE CLARITY CLEAR; URINE COLOR YELLOW; URINE GLUCOSE-RANDOM* NEGATIVE (Negative); URINE KETONES NEGATIVE (Negative); URINE LEUKOCYTES NEGATIVE (Negative); URINE NITRITE NEGATIVE (Negative); URINE PROTEIN (DIPSTICK) NEGATIVE (Negative); URINE UROBILINOGEN 0.2 E.U./dl (0.2-1.0)
[2019-12-16 23:11] LABS: URINE CREATININE-RANDOM* 13.7 mg/dL
[2019-12-17] VITALS (9 sets, daily range): BP systolic 133–156; BP diastolic 75–86
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
[2019-12-17 06:30] LABS: CALCIUM 8.4 mg/dL (8.5-10.1); CREATININE 0.6 mg/dL (0.6-1.0); POTASSIUM 3.3 mmol/L (3.5-5.1)
--- NOTE | 2019-12-17 14:51 | NUR ---
Patient transferred to [facility] from [facility] due to hyponatremia. Patient admitted to [facility] for SI and depression. Spoke with sister Laura who reports she wants patient to dc to [facility] an assisted living [facility]. Sister anjel wants to dc [place]. Sp with Dr Lawton to alert of sisters wishes, while on phone sister called service unit operator oil well. She alerted secretarry to tell SW [facility] does not have bed avail for patient at this time so needs to return to [facility]. Alerted DR Lawton who is aware. Plan patient to dc from acute once stable and transfer back to [facility] [place].
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
--- NOTE | 2019-12-18 03:58 | NUR ---
PT SLEPT ALL NIGHT. DENIES CONCERNS, NO HALLUCINATION NOTED. PT AOX 4. HEADACHE ALLEVIATED WITH TYLENOL. NO NAUSEA, VOMIITING , OR CHEST PAIN PAIN. REMAINS SR ON THE MONITOR. WILL CONTINUE TO FOLLOW POC.
[2019-12-18 04:45] VITALS: BP 139/75
[2019-12-18 06:34] LABS: CALCIUM 8.5 mg/dL (8.5-10.1); CREATININE 0.8 mg/dL (0.6-1.0); POTASSIUM 3.1 mmol/L (3.5-5.1)
[2019-12-18 07:42] VITALS: BP 141/74
[2019-12-18 11:29] VITALS: BP 155/80
--- NOTE | 2019-12-18 15:16 | NUR ---
ONDINA recieved a call from Pt's sister/DPOA Ligia Mcfarland, . Ligia informed that Pt has a placement at [facility] upon discharge. Ligia also informed Pt will need a covid test before being admitted. ONDINA informed Laura that the Pt was no longer on [facility] unit however SW would pass this infomation to the nurses and SW on 2nd floor. ONDINA contacted nursing unit on the 2nd floor to inform of information given. ONDINA also left a message for Nakita, sanitation worker hosing machinery, . concerning the matter. The admissions contact at [facility] is Lorena [phone].
[2019-12-18 15:48] VITALS: BP 127/67
--- NOTE | 2019-12-18 16:20 | NUR ---
Spoke with sister Laura, Kostas Leija at [facility]. Tenative plan for dc to [facility]. Dr Lawton following and possibly patient will not need to return to [facility]. Sp with Liss she reports the Assisted Living apt not avail now but may be ready in next 48 hours. Faxed her updates. They will need a COVID test faxed prior to admission. Alerted this to Dr Lawton and Dr Alonso. [facility] following for dc plan to [facility] or Assisted Living. Sister Laura requests medical team alert to patient need to dc to [facility], not safe to dc home. [facility] [phone] FAX [phone]
--- NOTE | 2019-12-18 17:34 | NUR ---
PT CARE ASSUMED APPROX 0700. ASSESSMENTS CHARTED. PT DENIES PAIN AND SOA. VSS. UP WITH STEADY GAIT. POC UPDATED FOR HYPONA+. PT TOLERATING POC. INTERVENTION FOR CONSTIPATION UNSUCCESSFUL. NO DISTRESS NOTED.
[2019-12-18 18:13] LABS: CALCIUM 8.7 mg/dL (8.5-10.1); CREATININE 0.8 mg/dL (0.6-1.0); POTASSIUM 3.9 mmol/L (3.5-5.1)
[2019-12-18 19:25] VITALS: BP 156/71
[2019-12-19 00:09] VITALS: BP 132/64
--- NOTE | 2019-12-19 03:37 | NUR ---
ASSUMED PT CARE AT 1900. PT IS ALERT AND ORIENTED BUT DROWSY. NO SIGN OF DISTRESS NOTED IN PT. DENIES ANY PAIN. PT IS AROUSABLE. PT IS STABLE. DENIES ANY HALLUCINATIONS. PT IS AMBULATORY AND STEADY. ASSESSMENT COMPLETED AND DOCUMENTED. SCHEDULED MEDS ADMINISTERED TO PT. TOLERATED PO INTAKE. CONTINUE TO MONITOR PT. NO FURTHER NEEDS AT THIS TIME
[2019-12-19 05:06] VITALS: BP 164/80
[2019-12-19 06:20] LABS: ALBUMIN 3.2 g/dL (3.4-5.0); CALCIUM 8.1 mg/dL (8.5-10.1); CREATININE 0.7 mg/dL (0.6-1.0); PHOSPHORUS 2.8 mg/dL (2.5-4.9); POTASSIUM 3.7 mmol/L (3.5-5.1)
[2019-12-19 07:30] VITALS: BP 185/94
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
--- NOTE | 2019-12-19 11:35 | NUR ---
Case discussed with the care team and Dr. Yen as well as the pt's sis/salima Sanchez. Pt will be on acute care one more night for IVF. She will dc back to [facility] for ongoing med adj and behavioral mngt. She will need a new covid test over the or Monday for likely dc to [facility] memory care unit at [place] on Monday. Her son will be providing transport on that day. Message left for Chastity at [facility] [phone] as well as LEARNING SUPPORT ASSISTANT on [facility].
[2019-12-19 11:50] VITALS: BP 149/85
[2019-12-19 12:04] LABS: HEMATOCRIT 41.5 % (37.0-47.0); HEMOGLOBIN 14.4 gm/dL (12.0-15.0); MCHC 34.6 g/dL (28.0-37.0); MCV 92.4 fL (80.0-100.0); PLATELET COUNT 302 thou/uL (150-400); RBC 4.49 mil/uL (4.20-5.00); RDW 12.8 % (10.5-14.5); WBC 5.5 thou/uL (4.0-11.0)
[2019-12-19 13:18] LABS: ABSOLUTE NEUTROPHILS 3.4 thou/uL (1.4-8.2); PLATELET ESTIMATE NORMAL
[2019-12-19 15:05] VITALS: BP 161/93
[2019-12-19 18:35] LABS: CALCIUM 8.7 mg/dL (8.5-10.1); CREATININE 0.9 mg/dL (0.6-1.0); POTASSIUM 3.8 mmol/L (3.5-5.1)
[2019-12-19 19:24] VITALS: BP 137/78
[2019-12-20 05:01] VITALS: BP 162/75
[2019-12-20 07:30] VITALS: BP 149/88
[2019-12-20] MEDS ORDERED: HYDRALAZINE 2525 MG PO (07:41)
[2019-12-20] MEDS ORDERED: HALOPERIDOL 1 MG1 MG PO (07:42)
[2019-12-20] MEDS ORDERED: K-DUR 20 MEQ T20 MEQ PO (07:42)
[2019-12-20] MEDS ORDERED: SODIUM CHLORIDE1 GM PO (07:42)
--- NOTE | 2019-12-20 08:01 | NUR ---
ASSUMED PT CARE AT 1900, PT IS AWAKE, ALERT AND ORIENTEDX4, FORGETFUL, SR ON THE MONITOR, VSS, DENIES CHEST PAIN OR SOB, MEDICATION GIVEN ORDERED, ASSESSMENTS CHARTED, STABLETHROUGH THE NIGHT, PASSED ON REPORT
--- NOTE | 2019-12-20 08:22 | NUR ---
ASSUMED CARE OF PT AT SHIFT CHANGE, A&0X4, VERY FORGETFUL WHICH SHE FEELS HAS BEEN EXACERBATED BY INTRO OF HALDOL. SEE SEPARATE INTERVENTIONS FOR ASSESSMENTS. ENCOURAGED PT TO USE CALL LIGHT FOR ANY NEEDS AND SHE FORGETS TOO. RESTING THIS AM, SAID SHE GOT LITTLE SLEEP. WILL CONTINUE TO MONITOR
[2019-12-20 11:05] VITALS: BP 115/58
--- NOTE | 2019-12-20 11:07 | NUR ---
DC to [facility] today. DC plan is to dc to memory care at [place] on Monday per son's car. [facility] socialworker updated, left message yesterday regarding the dc plan. Pt will need covid Monday or Monday. Laura updated.
--- NOTE | 2019-12-20 20:47 | HC ---
[facility] [place] [address] CONSULTATION Name: MEGHAN SANZ Kana Room #: 202-P [facility] IN M.R.#: [id number] Admission: 12/16/19 Attend Phys: Jackelin Silveira MD Discharge: 12/20/19 Date of : 48 Report #: [id number] THIS REPORT FOR: cc: NO FAMILY PHYSICIAN or PCP NO FAMILY PHYSICIAN or PCP Vicki Mc MD ~ CC: Jackelin Silveira NO PCP DATE OF SERVICE: 12/17/2019 REASON FOR CONSULTATION: Hyponatremia. REASON FOR PRESENTATION: The patient presented from the rehabilitation floor because of abnormal labs. HISTORY OF PRESENT ILLNESS: A 69-year-old with extensive psychiatric history. She is known to have hypertension. She was in the [facility] suite because she was depressed. There was a concern that she might be having some suicidal thoughts. The patient discovered during routine labs to have sodium of 118 and was brought down to the regular floor for further evaluation and management. She is maintained on numerous psychiatric medications including and not limited to sertraline. She is also maintained on bupropion. She admits to excessive water intake. I was consulted to manage her hyponatremia. The patient is actually asymptomatic from the hyponatremia perspective and she denies any headache. No dizziness. No seizure activities. PAST MEDICAL HISTORY: 1. Hypertension. 2. Depression. PAST SURGICAL HISTORY: Knee replacement. Shoulder surgery. ALLERGIES: CONTRAST and CEPHALEXIN. SOCIAL HISTORY: Denies drug or alcohol abuse. She used to work in [employer] industry. REVIEW OF SYSTEMS: GENERAL: No fever or chills. CARDIOVASCULAR: No chest pain or palpitation. PULMONARY: No cough or hemoptysis. GASTROINTESTINAL: No nausea or vomiting. GENITOURINARY: No frequency, no urgency. MUSCULOSKELETAL: Occasional myalgias. NEUROLOGICAL: No headache, no dizziness. [facility] [address] [place] [address] CONSULTATION Name: UMUMEGHAN I Room #: 202-P DIS [facility]#: [id number] Admission: 12/16/19 Attend Phys: Jackelin Silveira MD Discharge: 12/20/19 Date of : 48 Report #: [id number] PHYSICAL EXAMINATION: GENERAL: The patient is alert and oriented. She persistently reaches out to the water pitcher and keeps drinking water while talking to me: VITAL SIGNS: Her blood pressure is 153/82, temperature is 37.1, pulse rate is 75, respiratory rate is 12. HEAD AND NECK: No jugular venous distention. CHEST: No crackles. CARDIOVASCULAR: No rub. ABDOMEN: Soft, nontender. LOWER EXTREMITIES: No edema. LABORATORY VALUES: Revealed sodium of 120, potassium of 3.3, BUN of 6, creatinine of 0.6. Urine sodium is 26. Urine creatinine is 13.7. Osmolarity studies are pending. ASSESSMENT, IMPRESSION AND PLAN: 1. Hyponatremia due to polydipsia. 2. Hypokalemia. 3. The patient's history and findings are consistent with hyponatremia due to excessive water intake, complicated by psychiatric medication. 4. Add salt tablet. 5. Place on fluid restriction. 6. Slow correction of her sodium. Okay to keep on normal saline for now. 7. Serial serum sodiums. 8. We will continue to follow. <ELECTRONICALLY SIGNED> By: Vicki Mc MD 12/20/19 2047 0920 1142 Vicki Mc MD /nt
== END 2019-12-20 12:42 | DRG 644 ==
LOC: 2N 16:12
PROVIDERS: Hospitalist; Internal Medicine Nephrology; ADMIT Hospitalist; ATTEND Hospitalist
DX: E22.2 Syndrome of inappropriate secretion of antidiuretic hormone (principal); E44.1 Mild protein-calorie malnutrition; R41.0 Disorientation, unspecified; J45.909 Unspecified asthma, uncomplicated; F01.50 Vascular dementia, unspecified severity, without behavioral disturbance, psychotic disturbance, mood disturbance, and anxiety; Z60.2 Problems related to living alone; G47.00 Insomnia, unspecified; K59.00 Constipation, unspecified; F32.9 Major depressive disorder, single episode, unspecified; R63.1 Polydipsia; E87.6 Hypokalemia; E87.8 Other disorders of electrolyte and fluid balance, not elsewhere classified; F41.9 Anxiety disorder, unspecified; Z96.659 Presence of unspecified artificial knee joint; I10 Essential (primary) hypertension; K21.9 Gastro-esophageal reflux disease without esophagitis; Z88.8 Allergy status to other drugs, medicaments and biological substances; Z88.1 Allergy status to other antibiotic agents; Z91.041 Radiographic dye allergy status; Z79.899 Other long term (current) drug therapy; Z90.49 Acquired absence of other specified parts of digestive tract
CPT/HCPCS: 10081

== ENCOUNTER 2019-12-20 12:43 | Inpatient (IN) | payer OTHER ==
[~2019-12-20] VITALS: Ht 160 cm; Wt 51.4 kg
[~2019-12-20 12:43] MED LIST changes: +HALOPERIDOL 1 MG1 MG PO; +HYDRALAZINE 2525 MG PO; +K-DUR 20 MEQ T20 MEQ PO; +SODIUM CHLORIDE1 GM PO
[2019-12-20 12:49] VITALS: BP 155/77
--- NOTE | 2019-12-20 13:37 | NUR ---
RECEIVED REPORT FROM 2N NURSE. PT. IS BEING BROUGHT UP TO FOR DEMENTIA, DELUSIONS. SHE IS BEING ADMITTED FOR DEPRESSION WITH SI. SHE WAS DRINKING ETOH AND HER ETOH UPON ADMISSION WAS 157. SHE IS PLEASANT AND COOPERATIVE WITH THE ADMISSION. SHE IS NOT ABLE TO ANSWER ALL THE QUESTIONS SHE "FORGETS". SHE ATE LUNCH BEFORE COMING UP. SHE REFUSED ANY MORE TO EAT UP HERE. SHE IS ALLERGIC TO CEPHALEXIN, CLARITHROMYCIN, DOXYCYCHINE, ELETRIPTAN, LEVOFLOXACIN, METRONIDAZOLE, NITROFURANTOIN, AND CONTRAST DYE. HER SISTER IS THE DPOA BUT HAS NOT BEEN ENACTED. SHE STATES SHE WILL SIGN HERSELF IN. SHE IS AMBULATORY WITHOUT ASSISTIVE DEVICES. SHE HAS READING GLASSES WITH HER. SHE DOES NOT HAVE DENTURES OR HEARING AIDES. SHE STATES SHE LIKES TO BE CALLED [facility]. SHE HAS A DOG AND CAT HER SON IS WATCHING FOR HER. SHE IS A POOR HISTORIAN SHE IS FORGETFUL.
[2019-12-20 19:30] VITALS: BP 154/73
--- NOTE | 2019-12-20 23:58 | H ---
[facility] [place] [address] HISTORY AND PHYSICAL Name: MEGHAN SANZ I Room #: 526A-A ADM IN .R.#: [id number] Admission: 12/20/19 Attend Phys: Tho Lawton DO Discharge: Date of : 48 Report #: [id number] THIS REPORT FOR: cc: NO FAMILY PHYSICIAN or PCP NO FAMILY PHYSICIAN or PCP Tho Lawton DO ~ CC: Tho Lawton NO PCP DATE OF SERVICE: 12/20/2019 INPATIENT PSYCHIATRIC EVALUATION ATTENDING PSYCHIATRIST: Tho Lawton DO. SKI TOW OPERATOR: Jackelin Silveira MD. REASON FOR READMISSION: Paranoia, psychosis. SOURCES OF INFORMATION: Past records from her medical hospitalization, psychiatric hospitalization, and interview with the patient. CHIEF COMPLAINT: Unspecified. HISTORY OF PRESENT ILLNESS: This is a 69-year-old female who was brought up today from the CCU. The patient had gone medical on Monday of this week, which I believe, was 12/16/2019. The patient had a critical hyponatremia of 118 at that time. She was initially given NS on the medical floor and fluid restricted and then it failed to improve, so intravenous normal saline was given. She was started on 2 g a day of sodium chloride. The patient's sodium today is 130, which we will take as a good sign. In any event, the patient is in fair spirits today, denies SI, HI. The patient's psychiatric concerns dating back to her admission in [facility] before the medical admission is as follows: She was brought in by first responders after sister called 911. The patient was stating she wanted to kill herself. On arrival to the ER, she denied these thoughts, but was intoxicated with alcohol level of 191. She was admitted to the [facility] Unit. Her DPOA has been enacted. She does have a multiyear history of major neurocognitive disorder diagnosed in 2017. PSYCHIATRIC HISTORY: Major neurocognitive disorder diagnosed 3 years ago. Has an appointment with Dr. Munoz, her neurologist in 01/2020. MEDICAL HISTORY: Hypertension. SURGICAL HISTORY: Knee replacement x 2 years ago, shoulder surgery in 08/2019. [facility] [address] [place] [address] HISTORY AND PHYSICAL Name: UMUMEGHAN I Room #: 526A-A [facility]#: [id number] Admission: 12/20/19 Attend Phys: Tho Lawton DO Discharge: Date of : 48 Report #: [id number] ALLERGIES: CONTRAST DYE, CEPHALEXIN, DOXYCYCLINE, NITROFURANTOIN, CIPROFLOXACIN, METRONIDAZOLE, CLARITHROMYCIN, ONDANSETRON, LEVOFLOXACIN, AND ELETRIPTAN. DEVELOPMENTAL HISTORY: Born in [place], [place]; moved to [place] as a child when her parents . The patient has one older sister who is her DPOA. She claims the older sister has bipolar disorder. EDUCATIONAL HISTORY: She has a Bachelor's degree from [employer]. 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 Hobbies include taking care of her house and yard and spending time with her friends and volunteering. MARITAL HISTORY: She is for 20 years. 9 years ago. She has a 27-year-old son and reports taking care of him and this helped her cope with the of her . Sister reports that the son does not play an active role in the patient's life and she is concerned that he may be stealing money from her. This is unsubstantiated. SUBSTANCE USE HISTORY: I think she is underreporting to drink 1 glass of wine daily. Quit smoking 20 years ago, but smoked 1 pack per day for 20 years for 20 pack a year. Denies history of illicit drug use. FAMILY PSYCHIATRIC HISTORY: Grandfather was bipolar and committed suicide a number of years back. Sister is bipolar. On her discharge day note today, possible SIADH, though polydipsia was not witnessed. SSRIs have been discontinued. PHYSICAL EXAMINATION: VITAL SIGNS: Temperature 36.4, pulse 78, respirations 14, BP 155/77, O2 sat 100%. MUSCULOSKELETAL: Normal gait and station. MENTAL STATUS EXAMINATION: This is a well-developed, fairly nourished, female, appearing stated age. Attention fair. Concentration limited. Speech pushed. Thought process is linear and goal directed. Thought content focused on her sister taken from her and some persecutory themes. No psychomotor agitation or psychomotor retardation. The patient denied SI, HI. Denied auditory, visual, or tactile hallucinations. Memory not formally tested. Insight limited. Judgment limited. Fund of knowledge below average. FORMULATION: A 69-year-old female, readmitted to Geriatric Psychiatry after 4 or so day stay on the medical floor. CURRENT MEDICATIONS: Rivastigmine transdermal 9.5 mg per day for cognitive [facility] [address] [place] [address] HISTORY AND PHYSICAL Name: MEGHAN SANZ I Room #: 526A-A [facility].#: [id number] Admission: 12/20/19 Attend Phys: Tho Lawton DO Discharge: Date of : 48 Report #: [id number] enhancement, multivitamin p.o. daily, potassium chloride 40 mEq p.o. daily, metoprolol succinate 50 mg p.o. daily for hypertension with lisinopril 40 mg p.o. daily, Flonase 2 sprays to each nostril daily, amlodipine 10 mg p.o. daily, sodium chloride 2 g p.o. 3 times a day, hydralazine 25 mcg oral 3 times a day for hypertension, Haldol 4 mg p.o. twice per day, Protonix 40 mg p.o. b.i.d. right before breakfast and dinner, house PRNs. ASSESSMENT: Major neurocognitive disorder due to Alzheimer's disease, likely with behavioral disturbance, possible bipolar disorder, several medical problems including hyponatremia, hypertension, allergic rhinitis, GERD. PLAN: Evaluate, stabilize, obtain collateral. At this time, I will plan on increasing her Haldol to 5 mg twice a day and we will monitor her electrolytes closely. I will order a BMP for the a.m. The patient reportedly has placement at [facility] on Monday of next week. STRENGTHS: She is insured, some support from her sister. WEAKNESSES: Multiple morbidities, advancing age, and dementia at unfortunately young age. Time spent on this case is about 45 minutes. <ELECTRONICALLY SIGNED> By: Tho Lawton DO 12/20/19 2358 1828 22 Tho Lawton DO /nt
--- NOTE | 2019-12-21 01:35 | NUR ---
Care assumed of patient at 1915: Patient seated in dayroom at start of shift. Patient interacting well with peers. Patient alert and oriented to person only. Patient confused and forgetful. Patient smiling, happy, expansive. Denies SI/HI/AH/VH. Denies pain or discomfort. Patient having difficulty finding her room this evening. Oriented several times to location and time. Patient asking repeatedly for "sleeping pills". Patient took HS medication whole without difficulty. Reminded patient that she received medication to assist her sleep. Patient enjoys comforting and talking with other peers. Patient ate 100% HS snack. Patient had difficulty falling asleep this evening. Patient was able to fall asleep rather late this evening but is resting quietly at this time.
[2019-12-21 06:37] VITALS: BP 155/78
[2019-12-21 09:12] VITALS: BP 147/76
[2019-12-21 10:13] LABS: CALCIUM 9.1 mg/dL (8.5-10.1); CREATININE 0.8 mg/dL (0.6-1.0); POTASSIUM 4.2 mmol/L (3.5-5.1)
--- NOTE | 2019-12-21 12:47 | NUR ---
Alert to name and place but not to time or situation. States she believes she is here because "my sister tried to poison me." Denies SI/HI. Only concern is that she needs something to help her have BM. Forgetful. Calm and compliant, takes meds whole. Trying to follow fluid restriction but is difficult d/t forgetfulness. Breath sounds clear t/o. Reg HR auscultated. Color pink with brisk capillary refill and palpable peripheral pulses. Slight amt nonpitting edema in lower extremitites. Independent with voiding. Active bowel sounds over soft rounded abdomen. Can't remember when she had last BM. Ambulates with regular, steady gait. 1030 Overheard roommate saying she (roommate) wanted to harm other people with a plan to use a knife. Requesting for either her or her roommate to be transferred to another room. Roommate brought to day room. With request room transfer if available. 1300 Transferred to another room per request. Pt. forgot that she had made the request but when reminded wanted to transfer room. Spending alot of time in room. Dr. Ybarra and Dr. Alonso aware of request for medication for constipation. No s/o distress.
[2019-12-21 14:00] VITALS: BP 128/74
[2019-12-21 18:50] VITALS: BP 124/58
[2019-12-21 22:00] VITALS: BP 124/58
--- NOTE | 2019-12-21 22:56 | NUR ---
2250 RESUMMED CARE FROM DAY SHIFT THIS EVENING, PATIENT IN DAY ROOM WATCHING TV. PATIENT ORIENTED TIMES 4 PATIENT ASKS WHY SHE IS STILL HERE AND WNATS TO GO HOME. PATIENT DENIES SI/HI/AH/VH AT PRESENT, PATIENT ABDOMEN SOFT ROUND BOWEL SOUNDS PRESENT LUNGS CLEAR. PATIENT SOMETIMES GET CONFUSED AND WANDERS AROUND THE UNIT. PATIENT HAS NOT DISPLAYED ANY BEHAVIORS AT PRESENT WILL CONTINUE TO MONITOR PATIENT FOR BEHAVIORS AND SAFETY.
--- NOTE | 2019-12-22 01:58 | NUR ---
ASSUMED CARE OF PATIENT AT APPROXIMATELY 0015, PATIENT IN BED WITH EYES CLOSED. RR EVEN AND UNLABORED WITH NO S/S OF DISTRESS NOR ACUTE PAIN. NURSING WILL MAINTAIN Q12 CHECKS TO ENSURE SAFETY AT ALL TIMES.
[2019-12-22 05:35] VITALS: BP 157/86
[2019-12-22 07:43] VITALS: BP 134/56
--- NOTE | 2019-12-22 08:00 | NUR ---
Assumed [id number]. Feeding selfin dining room. No complaints offered.
--- NOTE | 2019-12-22 16:30 | NUR ---
Prior toafternoon meds Hydralazine and Sodium tabs YB=454/90 sitting right arm, 160/96 sitting left arm. Standing 150/96 left arm. Ortho check done as she had just come to bedfrom using toilet and felt woosy. She was encouragedto go to group for 3 PM SW group. She returned to her room stating she ws told it was not being held today. She returned to bed. (Yes SW group was being held.) In 1 to 1 interaction, pt. states she is eager to return home to housework. She stated she made a comment abount jumping off a deck and that is what got her here. She states she is in a good mood and does not wish to harm self nor commit suicide. Denies homicidal ideation. Denies H/ VH.. States she misses her friends related to sheltering in place. Covid test from last night has been sent out from our lab after the order was written and computer necessary documentation completed by RN-PC. Physically pt. has no concerns except constipation. Goal is to get to home. Lungs clear, heart RSR, hypoactive bowel sounds. No ankle edema. No delusional content in verbalizations.
[2019-12-22 20:37] VITALS: BP 156/80
--- NOTE | 2019-12-23 00:22 | NUR ---
Assumed care on 12/22/19, in the [facility], watching TV and socializing with peers. HRRR, Lungs CTA, ABD N x 4 Q. Reports pain in hips when sits. Will D/C to Morning side on 12/24/19. Took meds with out incident, VS 156/80 77 18 98.0 F 98% SPO2. Sleeping as of this writing.
[2019-12-23 08:52] VITALS: BP 130/75
[2019-12-23 10:48] VITALS: BP 130/75
--- NOTE | 2019-12-23 11:47 | NUR ---
ONDINA contacted [facility] and left a msg for Lorena the comm. director asking for a fax number so ONDINA can fax COVID-19 results. SW team will continue daisha follow pt during her stay on this unit.
--- NOTE | 2019-12-23 18:30 | NUR ---
pt was in day room when i arrived on duty thyis am. Pts appittie is good and medications were taken with out resistance. Orientated x3 and not as forgetfull. Assessment this Am was as follows. LUNGS WERE CLEARX 2, HEART REGULAR AND NSR. BOWEL SOUNDS ACTIVE, PEDAL PULSE REGULAR AND EQUAL. MEGHAN PARTICIPATED IN GROUPS TODAY. NO COMPLAINTS VOICED. STAFF CONTINUES TO OBSERVE.
[2019-12-23 19:36] VITALS: BP 131/72
--- NOTE | 2019-12-24 01:15 | NUR ---
ASSUMED CARE ON 12/23/19 @ 19:15, A&OX4 COOPERATIVE WITH CARE, COMPLIANT WITH MEDICATIONS. IN BED AT THIS WRITING, EYES CLOSED, RESPIRATIONS EVEN AND UNLABORED. WILL CONTINUE TO ROUND Q 12 MINUTES FOR PATIENT BEHAVIORS AND SAFETY.
[2019-12-24 01:44] VITALS: BP 131/72
--- NOTE | 2019-12-24 01:49 | NUR ---
PATIENT SLEEPING AT THIS TIME. EVEN RESPIRATIONS, NONLABORED BREATHING. BED IN LOW POSITION. CONTINUED ROUNDING TO ASSESS SAFETY AND STATUS OF PATIENT. JUST OBTAINED PATIENT AT THIS TIME. WILL CONTINUE TO MONITOR.
[2019-12-24 07:31] LABS: CALCIUM 8.5 mg/dL (8.5-10.1); CREATININE 0.7 mg/dL (0.6-1.0); POTASSIUM 3.8 mmol/L (3.5-5.1)
[2019-12-24 07:42] VITALS: BP 125/66
[2019-12-24 08:00] VITALS: BP 125/66
[2019-12-24 08:47] VITALS: BP 125/66
--- NOTE | 2019-12-24 09:09 | NUR ---
PT GROGGY THIS AM. PT STATED SHE IS TIRED. PT SAT UP IN BED AND TOOK MEDS. PT DENIES ANY N/V AT THIS TIME. PT STATED SHE DID EAT BREAKFAST. PT IS SMILING WITH NURSE.
[2019-12-24] MEDS ORDERED: HYDRALAZINE 2525 MG PO (09:30)
[2019-12-24] MEDS ORDERED: EXELON1 EAC1 TRANSDERM (09:30)
[2019-12-24] MEDS ORDERED: METOPROLOL SUCC50 MG PO (09:30)
[2019-12-24] MEDS ORDERED: AMLODIPINE BESY10 MG PO (09:30)
[2019-12-24] MEDS ORDERED: FLONASE 0.05%50 MCG NASAL (09:31)
[2019-12-24] MEDS ORDERED: K-DUR 20 MEQ T20 MEQ PO (09:31)
[2019-12-24] MEDS ORDERED: LISINOPRIL40 MG PO (09:31)
[2019-12-24] MEDS ORDERED: HALOPERIDOL 5 MG5 MG PO (09:31)
[2019-12-24] MEDS ORDERED: PREVAGEN PO (09:32)
[2019-12-24] MEDS ORDERED: PROTONIX40 M1 PO (09:32)
[2019-12-24] MEDS ORDERED: SODIUM CHLORIDE1 GM PO (09:33)
--- NOTE | 2019-12-24 09:59 | NUR ---
[facility] D/C NOTE ONDINA spoke with Lorena at [phone]. ONDINA faxed d/c docs to [phone]. ONDINA will submit docs with confirmation page to hospital file. No other needs for SW team to address at this time.
--- NOTE | 2019-12-24 11:00 | NUR ---
PT LEFT VIA AMBULATION WITH SON TO CAR. PT GOING TO MORNING SIDE [place]. PT STATED SHE JUST WANTED TO GO HOME. SHE HUGGED HER SON AND WAS CRYING.
--- NOTE | 2019-12-24 11:32 | NUR ---
ATTEMPTED TO GIVE REPORT TO MORNING SIDE [facility]. WAS TRANSFERED TO ANOTHER LINE AND LEFT A MESSAGE TO CALL BACK.
== END 2019-12-24 11:00 | DRG 57 ==
LOC: SBH 12:43
PROVIDERS: ADMIT Psychiatry & Neurology Psychiatry; ATTEND Psychiatry & Neurology Psychiatry
DX: G30.9 Alzheimer's disease, unspecified (principal); F02.81 Dementia in other diseases classified elsewhere, unspecified severity, with behavioral disturbance; E87.1 Hypo-osmolality and hyponatremia; I10 Essential (primary) hypertension; K21.9 Gastro-esophageal reflux disease without esophagitis; F31.9 Bipolar disorder, unspecified; E87.8 Other disorders of electrolyte and fluid balance, not elsewhere classified; E87.6 Hypokalemia; F41.9 Anxiety disorder, unspecified; Z96.659 Presence of unspecified artificial knee joint; Z88.8 Allergy status to other drugs, medicaments and biological substances; Z88.1 Allergy status to other antibiotic agents; Z91.041 Radiographic dye allergy status; Z87.891 Personal history of nicotine dependence; Z03.818 Encounter for observation for suspected exposure to other biological agents ruled out
CPT/HCPCS: 10880